=== PATIENT | female | born 1940 | race Caucasian/White ===

== ENCOUNTER 2016-10-27 18:10 | Inpatient (IN) | payer MEDICAID ==
[~2016-10-27] VITALS: Ht 157.5 cm; Wt 99.0 kg
[2016-10-27 19:33] LABS: BASOPHIL % 0.5 % (0-2); PLATELET COUNT 255 x10^3mcL (130-400)
[2016-10-27 19:50] LABS: RED CELL DISTRIBUTION WIDTH 15.6 % (11.5-14.5)
[2016-10-27 19:54] LABS: CALCIUM 9.9 mg/dL (8.5-10.1); CARBON DIOXIDE 32.3 mmol/L (21-32); CHLORIDE SERUM 102 mmol/L (98-107); CREATININE SERUM 1.5 mg/dL (0.6-1.0); GLUCOSE SERUM 273 mg/dL (74-106); SODIUM SERUM 138 mmol/L (136-145)
[2016-10-27 19:58] LABS: ALBUMIN 3.4 g/dL (3.4-5.0); ALKALINE PHOSPHATASE 163 U/L (46-116); ALT/SGPT 37 U/L (14-59); AST/SGOT 22 U/L (15-37); BILIRUBIN TOTAL 0.3 mg/dL (0.20-1.00); TOTAL PROTEIN, SERUM 7.4 g/dL (6.4-8.2)
[2016-10-27] MEDS ORDERED: NOR5 PO (20:58)
[2016-10-27] MEDS ORDERED: LASIX20 MG PO (20:59)
[2016-10-27] MEDS ORDERED: METOPROLOL SUCC25 M2 PO (20:59)
[2016-10-27] MEDS ORDERED: FERRALET 901 TAB PO (20:59)
[2016-10-27] MEDS ORDERED: ALLOPURINOL100 MG PO (20:59)
[2016-10-27] MEDS ORDERED: CLONIDINE0.2 M1 PO (21:00)
[2016-10-27] MEDS ORDERED: ZOLOFT25 MG PO (21:00)
[2016-10-27] MEDS ORDERED: THE MEDICINE S300 MG PO (21:00)
[2016-10-27] MEDS ORDERED: ASPIR 8181 MG PO (21:00)
[2016-10-27] MEDS ORDERED: SIMVASTATIN20 M1 PO (21:01)
[2016-10-27] MEDS ORDERED: DIOVAN320 MG PO (21:01)
[2016-10-27 21:28] VITALS: BP 167/73
[2016-10-27 21:30] VITALS: Ht 157.5 cm; Wt 99.0 kg
[2016-10-27 23:11] VITALS: BP 167/73
[2016-10-27 23:26] LABS: CHOLESTEROL/HDL RATIO 2.6
[2016-10-27 23:31] LABS: FREE T4 0.98 ng/dL (0.76-1.46); FREE THYROXINE INDEX 3.1 ug/dL (1.4-4.5); T4(THYROXINE) 8.5 ug/dL (4.7-13.3)
[2016-10-28 00:20] LABS: T3 TOTAL 1.12 ng/mL
[2016-10-28 05:20] VITALS: BP 138/65
[2016-10-28 07:20] LABS: BASOPHIL % 0.3 % (0-2); PLATELET COUNT 229 x10^3mcL (130-400)
[2016-10-28 07:21] LABS: RED CELL DISTRIBUTION WIDTH 15.1 % (11.5-14.5)
[2016-10-28 08:02] LABS: CALCIUM 9.2 mg/dL (8.5-10.1); CARBON DIOXIDE 27.9 mmol/L (21-32); CHLORIDE SERUM 103 mmol/L (98-107); CREATININE SERUM 1.5 mg/dL (0.6-1.0); GLUCOSE SERUM 177 mg/dL (74-106); MAGNESIUM 1.9 mg/dL (1.8-2.4); PHOSPHOROUS 4.2 mg/dL (2.5-4.9); POTASSIUM SERUM 4.4 mmol/L (3.5-5.1); SODIUM SERUM 139 mmol/L (136-145)
[2016-10-28 08:37] LABS: UA SPECIFIC GRAVITY 1.025 (1.005-1.035); microscopic required? YES; urine erythrocyte NEGATIVE (NEGATIVE)
[2016-10-28 08:46] LABS: AMPHETAMINE QUAL UR NONE DETECTED (NEG <=1000)
[2016-10-28 09:22] VITALS: BP 160/70
[2016-10-28 12:42] VITALS: BP 142/67
[2016-10-28 17:21] VITALS: BP 126/57
[2016-10-28 21:44] VITALS: BP 175/69
[2016-10-29 06:36] VITALS: BP 115/54
[2016-10-29 06:54] LABS: BASOPHIL % 0.3 % (0-2); PLATELET COUNT 224 x10^3mcL (130-400)
[2016-10-29 07:04] LABS: CALCIUM 8.9 mg/dL (8.5-10.1); CARBON DIOXIDE 30.1 mmol/L (21-32); CHLORIDE SERUM 103 mmol/L (98-107); CREATININE SERUM 1.4 mg/dL (0.6-1.0); GLUCOSE SERUM 170 mg/dL (74-106); PHOSPHOROUS 4.4 mg/dL (2.5-4.9); POTASSIUM SERUM 4.8 mmol/L (3.5-5.1); SODIUM SERUM 138 mmol/L (136-145)
[2016-10-29 07:13] LABS: RED CELL DISTRIBUTION WIDTH 15.6 % (11.5-14.5)
[2016-10-29 09:06] VITALS: BP 177/73
[2016-10-29 14:06] VITALS: BP 143/60
[2016-10-29] MEDS ORDERED: CLONIDINE0.2 M1 PO (14:59)
[2016-10-29] MEDS ORDERED: NOR5 PO (15:00)
[2016-10-29] MEDS ORDERED: DIOVAN320 MG PO (15:01)
[2016-10-29] MEDS ORDERED: LASIX20 MG PO (15:03)
[2016-10-29] MEDS ORDERED: GLU5 PO (15:05)
[2016-10-29] MEDS ORDERED: METOPROLOL TART25 M1 PO (15:16)
[2016-10-29] MEDS ORDERED: METFORMIN HCL500 MG PO (15:17)
[2016-10-29] MEDS ORDERED: BLOOD GLUCOSE1 EACH MC (15:18)
[2016-10-29] MEDS ORDERED: LANCETS THIN1 EACH MC (15:20)
[2016-10-29] MEDS ORDERED: BLOOD GLUCOSE1 EAC3 MC (15:21)
[2016-10-29 15:58] VITALS: BP 143/60
[2016-10-29 17:06] VITALS: BP 122/45
== END 2016-10-29 20:00 | disposition home or self-care (01) | DRG 198 ==
LOC: ED 18:10 → DU 20:10
PROVIDERS: Emergency Medicine; ADMIT Family Medicine
DX: I20.9 Angina pectoris, unspecified (principal); N17.0 Acute kidney failure with tubular necrosis; I12.9 Hypertensive chronic kidney disease with stage 1 through stage 4 chronic kidney disease, or unspecified chronic kidney disease; N18.9 Chronic kidney disease, unspecified; E11.65 Type 2 diabetes mellitus with hyperglycemia; E11.51 Type 2 diabetes mellitus with diabetic peripheral angiopathy without gangrene; M10.9 Gout, unspecified; F32.9 Major depressive disorder, single episode, unspecified; E78.5 Hyperlipidemia, unspecified; E66.9 Obesity, unspecified; Z68.39 Body mass index [BMI] 39.0-39.9, adult; Z79.82 Long term (current) use of aspirin
CPT/HCPCS: 80307; 82962; 83880; 84439; A9500; J1815; J2785; J7030; Q0092

== ENCOUNTER 2017-08-07 20:31 | Inpatient (IN) | payer MEDICAID ==
[~2017-08-07] VITALS: Ht 160 cm; Wt 97.5 kg
[~2017-08-07 20:31] MED LIST: ALLOPURINOL100 MG PO; ASPIR 8181 MG PO; BLOOD GLUCOSE1 EAC3 MC; BLOOD GLUCOSE1 EACH MC; CLONIDINE0.2 M1 PO; DIOVAN320 MG PO; FERRALET 901 TAB PO; GLU5 PO; LANCETS THIN1 EACH MC; LASIX20 MG PO; METFORMIN HCL500 MG PO; METOPROLOL SUCC25 M2 PO; METOPROLOL TART25 M1 PO; NOR5 PO; SIMVASTATIN20 M1 PO; THE MEDICINE S300 MG PO; ZOLOFT25 MG PO
[2017-08-08] VITALS (7 sets, daily range): BP systolic 152–220; BP diastolic 64–110
[2017-08-08 00:12] LABS: BASOPHIL % 0.7 % (0-2); PLATELET COUNT 233 x10^3mcL (130-400)
[2017-08-08 00:17] LABS: RED CELL DISTRIBUTION WIDTH 15.8 % (11.5-14.5)
[2017-08-08 00:28] LABS: CALCIUM 9.5 mg/dL (8.5-10.1); CARBON DIOXIDE 27.2 mmol/L (21-32); CHLORIDE SERUM 101 mmol/L (98-107); CREATININE SERUM 1.4 mg/dL (0.6-1.0); GLUCOSE SERUM 172 mg/dL (74-106); POTASSIUM SERUM 4.1 mmol/L (3.5-5.1); SODIUM SERUM 138 mmol/L (136-145)
[2017-08-08 00:33] LABS: ALBUMIN 3.3 g/dL (3.4-5.0); ALKALINE PHOSPHATASE 117 U/L (46-116); ALT/SGPT 27 U/L (14-59); AST/SGOT 18 U/L (15-37); BILIRUBIN TOTAL 0.2 mg/dL (0.20-1.00); TOTAL PROTEIN, SERUM 7.3 g/dL (6.4-8.2)
[2017-08-08] MEDS ORDERED: HUMALOG100 UNIT/1 (02:19)
[2017-08-08] MEDS ORDERED: LANTUS SOLOS100 U/M1 (02:19)
[2017-08-08] MEDS ORDERED: EPZICOM1 TAB (02:20)
[2017-08-08 04:16] LABS: UA SPECIFIC GRAVITY <=1.005 (1.005-1.035); microscopic required? YES; urine erythrocyte NEGATIVE (NEGATIVE)
[2017-08-08 04:27] LABS: T3 TOTAL 1.08 ng/mL
[2017-08-08 04:59] LABS: PHOSPHOROUS 3.8 mg/dL (2.5-4.9)
[2017-08-08 05:00] LABS: AMPHETAMINE QUAL UR NONE DETECTED (NEG <=1000)
[2017-08-08 05:00] LABS: CHOLESTEROL/HDL RATIO 2.4
[2017-08-08 06:04] LABS: FREE T4 1.14 ng/dL (0.76-1.46); FREE THYROXINE INDEX 3.2 ug/dL (1.4-4.5); T4(THYROXINE) 9.1 ug/dL (4.7-13.3)
[2017-08-08 08:22] LABS: BASOPHIL % 0.4 % (0-2); PLATELET COUNT 227 x10^3mcL (130-400)
[2017-08-08 08:25] LABS: RED CELL DISTRIBUTION WIDTH 15.9 % (11.5-14.5)
[2017-08-08 09:03] LABS: CALCIUM 9.5 mg/dL (8.5-10.1); CARBON DIOXIDE 26.7 mmol/L (21-32); CHLORIDE SERUM 103 mmol/L (98-107); CREATININE SERUM 1.4 mg/dL (0.6-1.0); GLUCOSE SERUM 189 mg/dL (74-106); SODIUM SERUM 140 mmol/L (136-145)
[2017-08-09] VITALS (12 sets, daily range): BP systolic 125–212; BP diastolic 57–85; Ht 160 cm; Wt 97.5 kg
[2017-08-09 06:43] LABS: BASOPHIL % 0.2 % (0-2); PLATELET COUNT 260 x10^3mcL (130-400)
[2017-08-09 07:02] LABS: CALCIUM 9.7 mg/dL (8.5-10.1); CARBON DIOXIDE 24.6 mmol/L (21-32); CHLORIDE SERUM 103 mmol/L (98-107); CREATININE SERUM 1.5 mg/dL (0.6-1.0); GLUCOSE SERUM 143 mg/dL (74-106); MAGNESIUM 1.9 mg/dL (1.8-2.4); PHOSPHOROUS 3.9 mg/dL (2.5-4.9); POTASSIUM SERUM 3.6 mmol/L (3.5-5.1); SODIUM SERUM 139 mmol/L (136-145)
[2017-08-10] VITALS (12 sets, daily range): BP systolic 112–205; BP diastolic 55–75
[2017-08-10 05:47] LABS: BASOPHIL % 0.3 % (0-2); PLATELET COUNT 250 x10^3mcL (130-400)
[2017-08-10 06:06] LABS: CALCIUM 9.4 mg/dL (8.5-10.1); CARBON DIOXIDE 26.5 mmol/L (21-32); CHLORIDE SERUM 100 mmol/L (98-107); GLUCOSE SERUM 137 mg/dL (74-106); POTASSIUM SERUM 3.8 mmol/L (3.5-5.1); SODIUM SERUM 138 mmol/L (136-145)
[2017-08-11 04:43] VITALS: BP 147/59
[2017-08-11 06:30] LABS: BASOPHIL % 0.4 % (0-2); PLATELET COUNT 230 x10^3mcL (130-400)
[2017-08-11 06:43] LABS: RED CELL DISTRIBUTION WIDTH 16.5 % (11.5-14.5)
[2017-08-11 06:44] LABS: CALCIUM 9.1 mg/dL (8.5-10.1); CARBON DIOXIDE 25.8 mmol/L (21-32); CHLORIDE SERUM 100 mmol/L (98-107); CREATININE SERUM 2.3 mg/dL (0.6-1.0); GLUCOSE SERUM 125 mg/dL (74-106); POTASSIUM SERUM 4.4 mmol/L (3.5-5.1); SODIUM SERUM 137 mmol/L (136-145)
[2017-08-11 08:00] VITALS: BP 145/70
[2017-08-11 10:30] VITALS: BP 138/74
[2017-08-11] MEDS ORDERED: COREG12.5 MG PO (10:51)
[2017-08-11] MEDS ORDERED: NOR10 PO (10:52)
[2017-08-11] MEDS ORDERED: CLINDAMYCIN HC300 MG PO (12:19)
[2017-08-11] MEDS ORDERED: LAC PO (12:20)
[2017-08-11 12:30] VITALS: BP 121/52
[2017-08-11] MEDS ORDERED: LEVAQUIN750 MG PO (13:33)
[2017-08-11] MEDS ORDERED: LEVEMIR100 U/M1 SC (13:34)
[2017-08-11] MEDS ORDERED: ADULT TUSS100 MG/5 M PO (13:46)
[2017-08-11] MEDS ORDERED: PRI20 PO (13:47)
[2017-08-11 13:58] VITALS: BP 121/52
== END 2017-08-11 17:16 | disposition home or self-care (01) | DRG 140 ==
LOC: ED 20:31 → DU 08-08 02:45
PROVIDERS: Emergency Medicine; Family Medicine; Student in an Organized Health Care Education/Training Program
DX: J44.1 Chronic obstructive pulmonary disease with (acute) exacerbation (principal); J69.0 Pneumonitis due to inhalation of food and vomit; N17.0 Acute kidney failure with tubular necrosis; J44.0 Chronic obstructive pulmonary disease with (acute) lower respiratory infection; E11.22 Type 2 diabetes mellitus with diabetic chronic kidney disease; J20.9 Acute bronchitis, unspecified; I12.9 Hypertensive chronic kidney disease with stage 1 through stage 4 chronic kidney disease, or unspecified chronic kidney disease; E78.00 Pure hypercholesterolemia, unspecified; N18.9 Chronic kidney disease, unspecified; M10.9 Gout, unspecified; E78.5 Hyperlipidemia, unspecified; D72.829 Elevated white blood cell count, unspecified; Z53.29 Procedure and treatment not carried out because of patient's decision for other reasons; F32.9 Major depressive disorder, single episode, unspecified; H40.9 Unspecified glaucoma; K21.9 Gastro-esophageal reflux disease without esophagitis; Z79.84 Long term (current) use of oral hypoglycemic drugs; Z79.899 Other long term (current) drug therapy; Z56.0 Unemployment, unspecified
CPT/HCPCS: 82962; 83880; 84439; J0360; J0696; J1815; J1940; J1956; J2060; J3490; J7030; J7620; Q0092

== ENCOUNTER 2018-12-14 19:20 | Emergency (ER) | payer SELFPAY ==
[~2018-12-14] VITALS: Ht 160 cm; Wt 99.3 kg
[~2018-12-14 19:20] MED LIST changes: +ADULT TUSS100 MG/5 M PO; +CLINDAMYCIN HC300 MG PO; +COREG12.5 MG PO; +EPZICOM1 TAB; +HUMALOG100 UNIT/1; +LAC PO; +LANTUS SOLOS100 U/M1; +LEVAQUIN750 MG PO; +LEVEMIR100 U/M1 SC; +NOR10 PO; +PRI20 PO
[2018-12-14 19:42] VITALS: Ht 160 cm; Wt 99.3 kg
[2018-12-14 21:05] LABS: BASOPHIL % 1.3 % (0-2); PLATELET COUNT 271 x10^3mcL (130-400)
[2018-12-14 21:08] LABS: RED CELL DISTRIBUTION WIDTH 15.6 % (11.5-14.5)
[2018-12-14 21:12] LABS: CALCIUM 10.1 mg/dL (8.5-10.1); CARBON DIOXIDE 23.1 mmol/L (21-32); CHLORIDE SERUM 105 mmol/L (98-107); CREATININE SERUM 1.5 mg/dL (0.6-1.0); GLUCOSE SERUM 186 mg/dL (74-106); POTASSIUM SERUM 4.5 mmol/L (3.5-5.1); SODIUM SERUM 141 mmol/L (136-145)
[2018-12-14 21:25] LABS: ALBUMIN 3.2 g/dL (3.4-5.0); ALKALINE PHOSPHATASE 146 U/L (46-116); ALT/SGPT 31 U/L (14-59); AST/SGOT 13 U/L (15-37); BILIRUBIN TOTAL 0.31 mg/dL (0.20-1.00); FREE T4 1.25 ng/dL (0.76-1.46); TOTAL PROTEIN, SERUM 7.4 g/dL (6.4-8.2)
[2018-12-14 23:08] LABS: UA SPECIFIC GRAVITY 1.015 (1.005-1.035); microscopic required? YES; urine erythrocyte TRACE (NEGATIVE)
[2018-12-15 00:18] VITALS: BP 167/86
== END 2018-12-15 00:18 | disposition home or self-care (01) ==
LOC: ED 19:20
PROVIDERS: Emergency Medicine
DX: I10 Essential (primary) hypertension (principal); E11.9 Type 2 diabetes mellitus without complications; N39.0 Urinary tract infection, site not specified
CPT/HCPCS: 36415; 83880; 84439; Q0092